=== PATIENT | male | born 1935 | race Caucasian/White ===

== ENCOUNTER 2020-01-29 16:58 | Inpatient (IN) | payer MEDICARE, BC ==
[~2020-01-29] VITALS: Ht 182.9 cm; Wt 87.7 kg
[2020-01-29 17:56] LABS: MEAN CORPUSCULAR HGB CONC 33.2 g/dL (33.2-36.2); MEAN CORPUSCULAR VOLUME 96.5 fL (81-97); MEAN PLATELET VOLUME 9.3 fL (7.4-10.4); PLATELET COUNT 138 x10^3/uL (130-400); RED BLOOD COUNT 4.14 x10^6/uL (4.38-5.82); RED CELL DISTRIBUTION WIDTH 13.6 % (9.4-14.8)
[2020-01-29 17:57] LABS: MD YES
[2020-01-29] MEDS ORDERED: SODIUM CHLORIDE FLUSH 10ML SYR IVF ONE (18:00)
[2020-01-29] MEDS ORDERED: SODIUM CHLORIDE 0.9% 1,000ML IVBOLUS ONE (18:00)
[2020-01-29 18:06] LABS: ALANINE AMINOTRANSFERASE 19 U/L (12-78); ALBUMIN 3.2 g/dL (3.4-5.0); ANION GAP 10 mmol/L (5-15); CALCIUM 8.7 mg/dL (8.5-10.1); CHLORIDE 107 mmol/L (98-107); CREATININE 1.37 mg/dL (0.7-1.3)
[2020-01-29 18:10] LABS: ALKALINE PHOSPHATASE 95 U/L (45-117); BILIRUBIN,TOTAL 1.8 mg/dL (0.2-1.0); TOTAL PROTEIN 6.1 g/dL (6.4-8.2)
--- NOTE | 2020-01-29 18:10 | NUR ---
REPORT RECEIVED FROM DOROTHEA AVILEZ.
--- NOTE | 2020-01-29 18:15 | NUR ---
BS REPORT TO EM, TRANSFER OF CARE AT THIS TIME.
[2020-01-29 18:20] LABS: BAND#(MANUAL) 0.57 x10^3/uL; BANDS%(MANUAL) 3 % (0-7); LYMPH#(MANUAL) 0.95 x10^3/uL (1-3.4); LYMPHS% (MANUAL) 5 % (22-44); MONOS#(MANUAL) 1.32 x10^3/uL (0.3-2.7); MONOS% (MANUAL) 7 % (2-9); SEG#(MANUAL) 16.07 x10^3/uL (1.8-6.8); SEGS% (MANUAL) 85 % (42-75)
[2020-01-29 18:21] LABS: <PLATELET ESTIMATE> ADEQUATE; <PLT MORPHOLOGY> NORMAL PLT MORPH; <RBC MORPHOLOGY> NORMAL
--- NOTE | 2020-01-29 18:39 | NUR ---
PT UNABLE TO PROVIDE URINE AT THIS TIME.
--- NOTE | 2020-01-29 19:03 | NUR ---
STRAIGHT CATH URINE SPECIMEN OBTAINED. OUTPUT 300CC. PT REPORTS HAS NOT MADE ANY URINE TODAY.
[2020-01-29] MEDS ORDERED: TACR0.5C4 PO (19:25)
[2020-01-29] MEDS ORDERED: FLEC50TA25 PO (19:25)
[2020-01-29] MEDS ORDERED: MYCO360T PO (19:25)
[2020-01-29] MEDS ORDERED: SIMV20TA19 PO (19:25)
[2020-01-29] MEDS ORDERED: LASIX PO (19:25)
[2020-01-29] MEDS ORDERED: ASPI-650 PO (19:25)
[2020-01-29] MEDS ORDERED: TACR1CAP4 PO (19:25)
[2020-01-29] MEDS ORDERED: SAW1CAPS8 PO (19:25)
[2020-01-29] MEDS ORDERED: PANT40TA5 PO (19:25)
[2020-01-29 19:32] LABS: CULTURE INDICATED? YES; MICROSCOPIC INDICATED
--- NOTE | 2020-01-29 19:33 | NUR ---
ALL TESTS RESULTED. PT IS UP FOR RECHECK AT THIS TIME.
--- NOTE | 2020-01-29 21:03 | NUR ---
PT RESTING ON [employer] W/ CALL LIGHT IN REACH. PER DR.SAHM LEE TO TAKE EVENING MEDS. PROVIDED WATER. AWAITING RECHECK.
--- NOTE | 2020-01-29 21:05 | NUR ---
MED REC DONE.
[2020-01-29] MEDS ORDERED: CEFTRIAXONE PMX 1GM/50ML 50 ML IVPB ONE (21:30)
[2020-01-29] MEDS ORDERED: SODIUM CHLORIDE FLUSH 10ML SYR IVF PRN (21:30)
--- NOTE | 2020-01-29 21:42 | NUR ---
ADMITTING PROVIDER IN ROOM.
[2020-01-29] MEDS ORDERED: hydrALAzine 20 MG/ML, 1ML IVPush PRN (22:00)
[2020-01-29] MEDS ORDERED: LABETALOL 5MG/ML, 20ML IVPush PRN (22:00)
[2020-01-29] MEDS ORDERED: BISACODYL 10 MG SUPP PR PRN (22:00)
[2020-01-29] MEDS: SIMVASTATIN 20 MG TABLET PO SCH (22:00)
[2020-01-29] MEDS ORDERED: ONDANSETRON ODT 4 MG PO PRN (22:00)
[2020-01-29] MEDS ORDERED: ACETAMINOPHEN 325 MG TABLET PO PRN (22:00)
[2020-01-29] MEDS: mycophenOLATE SODIUM 360MG DR PO SCH (22:00)
[2020-01-29] MEDS: FLECAINIDE 50MG TABLET PO SCH (22:00)
[2020-01-29] MEDS ORDERED: ONDANSETRON 2MG/ML, 2ML IVPush PRN (22:00)
[2020-01-29] MEDS ORDERED: DOCUSATE 100 MG CAPSULE PO PRN (22:00)
[2020-01-29] MEDS ORDERED: POLYETHYLENE GLYCOL 17 GM PACKET PO PRN (22:00)
[2020-01-29] MEDS: TACROLIMUS 1 MG CAPSULE PO SCH (22:00)
--- NOTE | 2020-01-29 22:10 | NUR ---
REPORT GIVEN TO DAIN AVILEZ. PT IS READY FOR TRANSPORT AT THIS TIME.
--- NOTE | 2020-01-29 22:17 | NUR ---
PT TRANSFERED TO FLOOR.
[2020-01-29 22:32] VITALS: BP 147/78
[2020-01-29] MEDS: CEFTRIAXONE PMX 1GM/50ML 50 ML IV SCH (23:43)
[2020-01-29] MEDS: HEPARIN 5,000 UNITS/ML, 1ML SQ SCH (23:43)
[2020-01-29] MEDS: SODIUM CHLORIDE 0.9% 1,000 ML IV SCH (23:43)
[2020-01-30 01:03] VITALS: BP 142/68
[2020-01-30 06:37] LABS: BASOPHILS # (AUTO) 0.01 x10^3/uL (0-0.1); BASOPHILS % (AUTO) 0 % (0-1); EOSINOPHILS % (AUTO) 0 % (1-7); LYMPHOCYTES # (AUTO) 0.69 x10^3/uL (1-3.4); LYMPHOCYTES % (AUTO) 4 % (22-44); MD NO; MEAN CORPUSCULAR HGB CONC 32.8 g/dL (33.2-36.2); MEAN CORPUSCULAR VOLUME 97.5 fL (81-97); MEAN PLATELET VOLUME 9.5 fL (7.4-10.4); MONOCYTES # (AUTO) 0.99 x10^3/uL (0.2-0.8); MONOCYTES % (AUTO) 6 % (2-9); NEUTROPHILS # (AUTO) 14.53 x10^3/uL (1.8-6.8); NEUTROPHILS % (AUTO) 90 % (42-75); PLATELET COUNT 114 x10^3/uL (130-400); RED BLOOD COUNT 4.09 x10^6/uL (4.38-5.82); RED CELL DISTRIBUTION WIDTH 13.1 % (9.4-14.8)
[2020-01-30 06:38] VITALS: BP 133/72
[2020-01-30 06:44] LABS: ALBUMIN 2.9 g/dL (3.4-5.0); ANION GAP 7 mmol/L (5-15); CALCIUM 8.3 mg/dL (8.5-10.1); CHLORIDE 109 mmol/L (98-107)
[2020-01-30 06:47] LABS: ALANINE AMINOTRANSFERASE 22 U/L (12-78); ALKALINE PHOSPHATASE 99 U/L (45-117); BILIRUBIN,TOTAL 1.7 mg/dL (0.2-1.0)
[2020-01-30] MEDS: TACROLIMUS 0.5 MG CAPSULE PO SCH (07:36)
[2020-01-30] MEDS: HEPARIN 5,000 UNITS/ML, 1ML SQ SCH (08:07)
[2020-01-30] MEDS: FLECAINIDE 50MG TABLET PO SCH (08:08)
[2020-01-30] MEDS: PANTOPRAZOLE 40MG TABLET PO SCH (08:08)
[2020-01-30] MEDS: mycophenOLATE SODIUM 360MG DR PO SCH ×2 (08:08→20:43)
[2020-01-30] MEDS: SODIUM CHLORIDE 0.9% 1,000 ML IV SCH (09:28)
[2020-01-30] MEDS: TAMSULOSIN 0.4 MG CAP.ER.24H PO SCH (09:28)
[2020-01-30] MEDS: PHENAZOPYRIDINE 100 MG TABLET PO SCH ×3 (09:28→20:43)
[2020-01-30] MEDS ORDERED: SODIUM PHOSPHATE 30 MMOL in SODIUM CHLORIDE 0.9% 500 ML IV ONE (11:00)
[2020-01-30] MEDS ORDERED: MAGNESIUM SULFATE PMX 2GM/50ML 50 ML IV ONE (11:00)
[2020-01-30] MEDS ORDERED: DILTIAZEM 5 MG/ML, 5ML ONE (12:27)
[2020-01-30] MEDS: DILTIAZEM 5 MG/ML, 5ML IVPush PRN (12:30)
[2020-01-30] MEDS: DILTIAZEM 125 MG in SODIUM CHLORIDE 0.9% 100 ML IV SCH ×2 (13:00→23:59)
[2020-01-30 13:16] VITALS: BP 104/64
[2020-01-30] MEDS ORDERED: HEPARIN 5,000 UNITS/ML, 1ML IV ONE (16:30)
[2020-01-30] MEDS: HEPARIN 25,000 UNITS/250ML PMX 250 ML IV PRN (17:34)
[2020-01-30 18:55] VITALS: BP 112/62
[2020-01-30] MEDS: TACROLIMUS 1 MG CAPSULE PO SCH (20:43)
[2020-01-30] MEDS: SIMVASTATIN 20 MG TABLET PO SCH (20:44)
[2020-01-30] MEDS: CEFTRIAXONE PMX 1GM/50ML 50 ML IV SCH (22:26)
[2020-01-31] MEDS: HEPARIN 5,000 UNITS/ML, 1ML IV PRN ×3 (00:06→22:10)
[2020-01-31 01:04] VITALS: BP 100/60
[2020-01-31] MEDS: SODIUM CHLORIDE 0.9% 1,000 ML IV SCH ×3 (01:41→15:56)
[2020-01-31 07:15] LABS: CALCIUM 7.8 mg/dL (8.5-10.1); CREATININE 1.12 mg/dL (0.7-1.3)
[2020-01-31 07:22] LABS: ANION GAP 9 mmol/L (5-15); CHLORIDE 110 mmol/L (98-107)
[2020-01-31 07:26] LABS: BASOPHILS # (AUTO) 0.01 x10^3/uL (0-0.1); BASOPHILS % (AUTO) 0 % (0-1); EOSINOPHILS # (AUTO) 0.01 x10^3/uL (0-0.4); EOSINOPHILS % (AUTO) 0 % (1-7); HEMOGRAM NOTE RECHECKED; LYMPHOCYTES # (AUTO) 0.56 x10^3/uL (1-3.4); LYMPHOCYTES % (AUTO) 7 % (22-44); MD NO; MEAN CORPUSCULAR HEMOGLOBIN 31.9 pg (27.5-34.5); MEAN CORPUSCULAR HGB CONC 32.8 g/dL (33.2-36.2); MEAN PLATELET VOLUME 9.7 fL (7.4-10.4); MONOCYTES # (AUTO) 0.33 x10^3/uL (0.2-0.8); MONOCYTES % (AUTO) 4 % (2-9); NEUTROPHILS # (AUTO) 7.55 x10^3/uL (1.8-6.8); NEUTROPHILS % (AUTO) 89 % (42-75); PLATELET COUNT 100 x10^3/uL (130-400); RED CELL DISTRIBUTION WIDTH 13.5 % (9.4-14.8)
[2020-01-31 07:45] VITALS: BP 111/58
[2020-01-31] MEDS: PHENAZOPYRIDINE 100 MG TABLET PO SCH ×3 (08:03→20:55)
[2020-01-31] MEDS: PANTOPRAZOLE 40MG TABLET PO SCH (08:03)
[2020-01-31] MEDS: TAMSULOSIN 0.4 MG CAP.ER.24H PO SCH (08:03)
[2020-01-31] MEDS: mycophenOLATE SODIUM 360MG DR PO SCH ×2 (08:03→20:56)
[2020-01-31] MEDS: TACROLIMUS 0.5 MG CAPSULE PO SCH (08:04)
[2020-01-31] MEDS ORDERED: POTASSIUM CHLORIDE 20 MEQ in SODIUM CHLORIDE 0.9% 250 ML IV ONE (11:00)
[2020-01-31 12:14] VITALS: BP 122/63
[2020-01-31] MEDS: FLECAINIDE 50MG TABLET PO SCH (12:48)
[2020-01-31] MEDS ORDERED: POTASSIUM PHOSPHATE 44 MEQ in SODIUM CHLORIDE 0.9% 500 ML IV ONE (15:00)
[2020-01-31] MEDS: HEPARIN 25,000 UNITS/250ML PMX 250 ML IV PRN (15:55)
[2020-01-31] MEDS: NAPHAZOLINE/PHENIRAMINE OPHTH EACHEYE PRN ×2 (17:13→20:58)
[2020-01-31 19:17] VITALS: BP 104/66
[2020-01-31] MEDS: TACROLIMUS 1 MG CAPSULE PO SCH (20:55)
[2020-01-31] MEDS: SIMVASTATIN 20 MG TABLET PO SCH (20:56)
[2020-01-31] MEDS: CEFTRIAXONE PMX 1GM/50ML 50 ML IV SCH (20:59)
[2020-02-01 00:35] VITALS: BP 155/74
[2020-02-01] MEDS: SODIUM CHLORIDE 0.9% 1,000 ML IV SCH ×2 (00:50→08:32)
[2020-02-01] MEDS: FLECAINIDE 50MG TABLET PO SCH ×2 (00:55→11:46)
[2020-02-01] MEDS ORDERED: ALBUTEROL SULFATE 2.5 MG/3 ML ONE (03:13)
[2020-02-01 04:57] LABS: MEAN CORPUSCULAR HEMOGLOBIN 32.5 pg (27.5-34.5); MEAN CORPUSCULAR HGB CONC 33.4 g/dL (33.2-36.2); MEAN CORPUSCULAR VOLUME 97.5 fL (81-97); MEAN PLATELET VOLUME 9.7 fL (7.4-10.4); PLATELET COUNT 97 x10^3/uL (130-400); RED BLOOD COUNT 3.75 x10^6/uL (4.38-5.82); RED CELL DISTRIBUTION WIDTH 13.5 % (9.4-14.8)
[2020-02-01 04:59] LABS: ALBUMIN 2.4 g/dL (3.4-5.0); ANION GAP 10 mmol/L (5-15); CALCIUM 7.8 mg/dL (8.5-10.1); CHLORIDE 109 mmol/L (98-107); CREATININE 0.97 mg/dL (0.7-1.3)
[2020-02-01] MEDS ORDERED: ALBUTEROL SULFATE 2.5 MG/3 ML NPPB PRN (05:30)
[2020-02-01 05:49] LABS: BASOPHILS % (AUTO) 0 % (0-1); EOSINOPHILS # (AUTO) 0.04 x10^3/uL (0-0.4); EOSINOPHILS % (AUTO) 1 % (1-7); LYMPHOCYTES # (AUTO) 0.65 x10^3/uL (1-3.4); LYMPHOCYTES % (AUTO) 10 % (22-44); MD SCAN; MONOCYTES # (AUTO) 0.52 x10^3/uL (0.2-0.8); MONOCYTES % (AUTO) 8 % (2-9); NEUTROPHILS # (AUTO) 5.38 x10^3/uL (1.8-6.8); NEUTROPHILS % (AUTO) 82 % (42-75)
[2020-02-01 07:55] VITALS: BP 140/85
[2020-02-01] MEDS: mycophenOLATE SODIUM 360MG DR PO SCH ×2 (08:25→20:59)
[2020-02-01] MEDS: TACROLIMUS 0.5 MG CAPSULE PO SCH (08:25)
[2020-02-01] MEDS: PHENAZOPYRIDINE 100 MG TABLET PO SCH ×3 (08:25→21:00)
[2020-02-01] MEDS: TAMSULOSIN 0.4 MG CAP.ER.24H PO SCH (08:25)
[2020-02-01] MEDS: PANTOPRAZOLE 40MG TABLET PO SCH (08:25)
[2020-02-01] MEDS ORDERED: POTASSIUM CHLORIDE 20 MEQ in SODIUM CHLORIDE 0.9% 250 ML IV ONE (09:00)
[2020-02-01] MEDS ORDERED: POTASSIUM PHOSPHATE 44 MEQ in SODIUM CHLORIDE 0.9% 500 ML IV ONE (09:00)
[2020-02-01] MEDS ORDERED: MAGNESIUM SULFATE PMX 2GM/50ML 50 ML IV ONE (09:00)
[2020-02-01] MEDS: MULTIVITS,STRESS FORMULA 1 TABLET PO SCH (10:14)
[2020-02-01] MEDS: CHOLECALCIFEROL 400 UNITS TABLET PO SCH (10:14)
[2020-02-01 13:13] VITALS: BP 146/85
[2020-02-01] MEDS: NAPHAZOLINE/PHENIRAMINE OPHTH EACHEYE PRN (16:52)
[2020-02-01] MEDS: ASCORBIC ACID 500 MG TABLET PO SCH (16:52)
[2020-02-01 19:49] VITALS: BP 143/85
[2020-02-01] MEDS: APIXABAN 5 MG TABLET PO SCH (20:59)
[2020-02-01] MEDS: TACROLIMUS 1 MG CAPSULE PO SCH (20:59)
[2020-02-01] MEDS: SIMVASTATIN 20 MG TABLET PO SCH (20:59)
[2020-02-01] MEDS: CEFTRIAXONE PMX 1GM/50ML 50 ML IV SCH (21:00)
[2020-02-02] MEDS: FLECAINIDE 50MG TABLET PO SCH (00:51)
[2020-02-02] MEDS: NAPHAZOLINE/PHENIRAMINE OPHTH EACHEYE PRN ×2 (00:52→13:18)
[2020-02-02 00:53] VITALS: BP 152/90
[2020-02-02] MEDS: DILTIAZEM 5 MG/ML, 5ML IVPush PRN ×3 (01:57→08:05)
[2020-02-02 04:54] LABS: BASOPHILS # (AUTO) 0.02 x10^3/uL (0-0.1); BASOPHILS % (AUTO) 0 % (0-1); EOSINOPHILS # (AUTO) 0.04 x10^3/uL (0-0.4); EOSINOPHILS % (AUTO) 1 % (1-7); LYMPHOCYTES # (AUTO) 0.69 x10^3/uL (1-3.4); LYMPHOCYTES % (AUTO) 9 % (22-44); MD NO; MEAN CORPUSCULAR HEMOGLOBIN 31.6 pg (27.5-34.5); MEAN CORPUSCULAR HGB CONC 32.4 g/dL (33.2-36.2); MEAN CORPUSCULAR VOLUME 97.7 fL (81-97); MEAN PLATELET VOLUME 9.2 fL (7.4-10.4); MONOCYTES # (AUTO) 0.69 x10^3/uL (0.2-0.8); MONOCYTES % (AUTO) 9 % (2-9); NEUTROPHILS # (AUTO) 6.25 x10^3/uL (1.8-6.8); NEUTROPHILS % (AUTO) 81 % (42-75); PLATELET COUNT 111 x10^3/uL (130-400); RED BLOOD COUNT 3.81 x10^6/uL (4.38-5.82); RED CELL DISTRIBUTION WIDTH 13.3 % (9.4-14.8)
[2020-02-02 05:04] LABS: ALBUMIN 2.3 g/dL (3.4-5.0); ANION GAP 8 mmol/L (5-15); CALCIUM 7.9 mg/dL (8.5-10.1); CHLORIDE 110 mmol/L (98-107)
[2020-02-02 07:02] VITALS: BP 129/81
[2020-02-02] MEDS ORDERED: POTASSIUM PHOSPHATE 44 MEQ in SODIUM CHLORIDE 0.9% 500 ML IV ONE (08:00)
[2020-02-02] MEDS ORDERED: MAGNESIUM SULFATE PMX 2GM/50ML 50 ML IV ONE (08:00)
[2020-02-02] MEDS: CHOLECALCIFEROL 400 UNITS TABLET PO SCH (08:04)
[2020-02-02] MEDS: TAMSULOSIN 0.4 MG CAP.ER.24H PO SCH (08:04)
[2020-02-02] MEDS: PANTOPRAZOLE 40MG TABLET PO SCH (08:05)
[2020-02-02] MEDS: MULTIVITS,STRESS FORMULA 1 TABLET PO SCH (08:05)
[2020-02-02] MEDS: APIXABAN 5 MG TABLET PO SCH ×2 (08:05→21:33)
[2020-02-02] MEDS: ASCORBIC ACID 500 MG TABLET PO SCH ×2 (08:05→16:13)
[2020-02-02] MEDS: TACROLIMUS 0.5 MG CAPSULE PO SCH (08:05)
[2020-02-02] MEDS: PHENAZOPYRIDINE 100 MG TABLET PO SCH ×3 (08:05→21:33)
[2020-02-02] MEDS: DILTIAZEM 60 MG TABLET PO SCH ×3 (09:39→21:33)
[2020-02-02] MEDS: mycophenOLATE SODIUM 360MG DR PO SCH ×2 (09:40→21:33)
[2020-02-02 13:14] VITALS: BP 104/67
[2020-02-02 18:39] VITALS: BP 116/65
[2020-02-02] MEDS: CEFTRIAXONE PMX 1GM/50ML 50 ML IV SCH (21:33)
[2020-02-02] MEDS: TACROLIMUS 1 MG CAPSULE PO SCH (21:33)
[2020-02-02] MEDS: SIMVASTATIN 20 MG TABLET PO SCH (21:33)
[2020-02-03 00:52] VITALS: BP 111/62
[2020-02-03 06:05] LABS: BASOPHILS % (AUTO) 0 % (0-1); EOSINOPHILS # (AUTO) 0.09 x10^3/uL (0-0.4); EOSINOPHILS % (AUTO) 1 % (1-7); LYMPHOCYTES # (AUTO) 0.85 x10^3/uL (1-3.4); LYMPHOCYTES % (AUTO) 13 % (22-44); MD NO; MEAN CORPUSCULAR HEMOGLOBIN 31.7 pg (27.5-34.5); MEAN CORPUSCULAR HGB CONC 32.7 g/dL (33.2-36.2); MEAN CORPUSCULAR VOLUME 96.8 fL (81-97); MONOCYTES # (AUTO) 0.57 x10^3/uL (0.2-0.8); MONOCYTES % (AUTO) 9 % (2-9); NEUTROPHILS # (AUTO) 5.07 x10^3/uL (1.8-6.8); NEUTROPHILS % (AUTO) 77 % (42-75); PLATELET COUNT 114 x10^3/uL (130-400); RED BLOOD COUNT 3.88 x10^6/uL (4.38-5.82); RED CELL DISTRIBUTION WIDTH 13.4 % (9.4-14.8)
[2020-02-03 06:08] VITALS: BP 150/64
[2020-02-03 06:15] LABS: ALBUMIN 2.2 g/dL (3.4-5.0); CHLORIDE 110 mmol/L (98-107)
[2020-02-03 06:17] LABS: ANION GAP 8 mmol/L (5-15); CALCIUM 8.1 mg/dL (8.5-10.1); CREATININE 0.75 mg/dL (0.7-1.3)
[2020-02-03] MEDS: TACROLIMUS 0.5 MG CAPSULE PO SCH (07:34)
[2020-02-03] MEDS: DILTIAZEM 60 MG TABLET PO SCH (07:34)
[2020-02-03] MEDS: PHENAZOPYRIDINE 100 MG TABLET PO SCH ×3 (07:34→20:09)
[2020-02-03] MEDS: TAMSULOSIN 0.4 MG CAP.ER.24H PO SCH (07:34)
[2020-02-03] MEDS: PANTOPRAZOLE 40MG TABLET PO SCH (07:34)
[2020-02-03] MEDS: MULTIVITS,STRESS FORMULA 1 TABLET PO SCH (07:34)
[2020-02-03] MEDS: CHOLECALCIFEROL 400 UNITS TABLET PO SCH (07:34)
[2020-02-03] MEDS: APIXABAN 5 MG TABLET PO SCH ×2 (07:34→20:10)
[2020-02-03] MEDS: ASCORBIC ACID 500 MG TABLET PO SCH ×2 (07:34→15:35)
[2020-02-03] MEDS: DILTIAZEM 120 MG CAP.ER.12H PO SCH ×2 (10:01→20:12)
[2020-02-03] MEDS ORDERED: SIMV10TA18 PO (10:04)
[2020-02-03] MEDS ORDERED: APIX5TAB PO (10:04)
[2020-02-03] MEDS ORDERED: DILT120C11 PO (10:04)
[2020-02-03] MEDS ORDERED: GENT5DRO30 LEFTEYE (10:32)
[2020-02-03] MEDS: mycophenOLATE SODIUM 360MG DR PO SCH ×2 (11:11→20:09)
[2020-02-03] MEDS: GENTAMICIN OPHTH SOLN 0.3%,5ML LEFTEYE SCH ×4 (11:12→23:17)
[2020-02-03 12:00] VITALS: BP 108/75
[2020-02-03 19:02] VITALS: BP 101/72
[2020-02-03] MEDS: TACROLIMUS 1 MG CAPSULE PO SCH (20:09)
[2020-02-03] MEDS: SIMVASTATIN 20 MG TABLET PO SCH (20:10)
[2020-02-03 20:12] VITALS: BP 121/69
[2020-02-04 00:51] VITALS: BP 107/78
[2020-02-04] MEDS: GENTAMICIN OPHTH SOLN 0.3%,5ML LEFTEYE SCH ×3 (03:04→12:36)
[2020-02-04 06:43] VITALS: BP 143/75
[2020-02-04] MEDS: mycophenOLATE SODIUM 360MG DR PO SCH (08:14)
[2020-02-04] MEDS: PHENAZOPYRIDINE 100 MG TABLET PO SCH (08:14)
[2020-02-04] MEDS: APIXABAN 5 MG TABLET PO SCH (08:14)
[2020-02-04] MEDS: MULTIVITS,STRESS FORMULA 1 TABLET PO SCH (08:14)
[2020-02-04] MEDS: TACROLIMUS 0.5 MG CAPSULE PO SCH (08:14)
[2020-02-04] MEDS: ASCORBIC ACID 500 MG TABLET PO SCH (08:14)
[2020-02-04] MEDS: PANTOPRAZOLE 40MG TABLET PO SCH (08:14)
[2020-02-04] MEDS: DILTIAZEM 120 MG CAP.ER.12H PO SCH (08:14)
[2020-02-04] MEDS: CHOLECALCIFEROL 400 UNITS TABLET PO SCH (08:14)
[2020-02-04] MEDS: TAMSULOSIN 0.4 MG CAP.ER.24H PO SCH (08:14)
[2020-02-04 10:05] VITALS: BP 111/65
[2020-02-04 12:08] VITALS: BP 132/71
== END 2020-02-04 14:23 | disposition home health service (06) | DRG 871 ==
LOC: ED 20:07 → EDIP 21:36 → 4EST 22:41
PROVIDERS: ADMIT Family Medicine; ATTEND Family Medicine
DX: A41.9 Sepsis, unspecified organism (principal); N17.0 Acute kidney failure with tubular necrosis; E87.2 Acidosis; T86.19 Other complication of kidney transplant; B96.89 Other specified bacterial agents as the cause of diseases classified elsewhere; D69.6 Thrombocytopenia, unspecified; R33.9 Retention of urine, unspecified; R27.0 Ataxia, unspecified; I35.8 Other nonrheumatic aortic valve disorders; I48.0 Paroxysmal atrial fibrillation; N30.91 Cystitis, unspecified with hematuria; N40.1 Benign prostatic hyperplasia with lower urinary tract symptoms; Z87.441 Personal history of nephrotic syndrome; Z80.52 Family history of malignant neoplasm of bladder; Z88.8 Allergy status to other drugs, medicaments and biological substances; Y83.0 Surgical operation with transplant of whole organ as the cause of abnormal reaction of the patient, or of later complication, without mention of misadventure at the time of the procedure; W18.2XXA Fall in (into) shower or empty bathtub, initial encounter; Y93.E1 Activity, personal bathing and showering; Y92.009 Unspecified place in unspecified non-institutional (private) residence as the place of occurrence of the external cause
CPT/HCPCS: 36415; 70450; 71045; 76770; 80048; 80053; 80069; 80197; 81001; 83036; 83605; 83735; 83880; 84100; 84443; 85025; 85520; 87040; 87077; 87086; 87186; 93005; 93306; 93880; 94640; G0378; J0696; J1644; J3480; J7507; J7518; J3475; J7030; J7040; J7050

== ENCOUNTER 2020-02-15 14:24 | Inpatient (IN) | payer MEDICARE, OTHER ==
[~2020-02-15] VITALS: Ht 182.9 cm; Wt 80.2 kg
[~2020-02-15 14:24] MED LIST: APIX5TAB PO; ASPI-650 PO; DILT120C11 PO; FLEC50TA25 PO; GENT5DRO30 LEFTEYE; LASIX PO; MYCO360T PO; PANT40TA5 PO; SAW1CAPS8 PO; SIMV10TA18 PO; SIMV20TA19 PO; TACR0.5C4 PO; TACR1CAP4 PO
--- NOTE | 2020-02-15 14:50 | NUR ---
PT C/O NOT BEING ABLE TO URINATE FOR LAST FEW DAYS. PT STATES ONLY A LITTLE COMES OUT AT A TIME. 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 DAUGHTER AT BEDSIDE. PT CONNECTED TO MONITORING. CALL LIGHT IN REACH.
--- NOTE | 2020-02-15 15:09 | NUR ---
BLADDER SCAN SHOWED ABOUT 200ML. MD NOTIFIED.
--- NOTE | 2020-02-15 15:11 | NUR ---
PT GIVEN URINAL TO SEE HOW MUCH PT CAN URINATE.
[2020-02-15 15:44] LABS: BASOPHILS # (AUTO) 0.01 x10^3/uL (0-0.1); BASOPHILS % (AUTO) 0 % (0-1); EOSINOPHILS # (AUTO) 0.01 x10^3/uL (0-0.4); EOSINOPHILS % (AUTO) 0 % (1-7); LYMPHOCYTES % (AUTO) 12 % (22-44); MD NO; MEAN CORPUSCULAR HEMOGLOBIN 31.5 pg (27.5-34.5); MEAN CORPUSCULAR HGB CONC 32.5 g/dL (33.2-36.2); MONOCYTES # (AUTO) 0.95 x10^3/uL (0.2-0.8); MONOCYTES % (AUTO) 12 % (2-9); NEUTROPHILS # (AUTO) 6.35 x10^3/uL (1.8-6.8); NEUTROPHILS % (AUTO) 76 % (42-75); PLATELET COUNT 216 x10^3/uL (130-400); RED BLOOD COUNT 3.94 x10^6/uL (4.38-5.82); RED CELL DISTRIBUTION WIDTH 13.8 % (9.4-14.8)
[2020-02-15 15:51] LABS: ALBUMIN 2.9 g/dL (3.4-5.0); ANION GAP 7 mmol/L (5-15); CALCIUM 8.6 mg/dL (8.5-10.1); CHLORIDE 106 mmol/L (98-107); CREATININE 1.24 mg/dL (0.7-1.3)
--- NOTE | 2020-02-15 16:04 | NUR ---
PT UNABLE TO PROVIDE URINE SAMPLE. RECEIVED VERBAL ORDER FROM TO PLACE INDWELLING LI CATHETER. CATHETER PLACE USING STERILE PROCEDURE. 200ML OF YELLOW URINE DRAINED. UA COLLECTED AND TAKEN TO LAB.
[2020-02-15 16:17] LABS: MICROSCOPIC AUTO
[2020-02-15 16:20] LABS: CULTURE INDICATED? YES
--- NOTE | 2020-02-15 16:24 | NUR ---
ALL RESULTS ARE BACK AT THIS TIME. CHART UP FOR RECHECK.
--- NOTE | 2020-02-15 17:36 | NUR ---
REPORT GIVEN TO STACIE AVILEZ.
[2020-02-15] MEDS ORDERED: ERTAPENEM 1 GM in SODIUM CHLORIDE 0.9% 50 ML IV SCH (18:00)
[2020-02-15] MEDS ORDERED: ACETAMINOPHEN 325 MG TABLET PO PRN (19:00)
[2020-02-15] MEDS ORDERED: BISACODYL 10 MG SUPP PR PRN (19:00)
[2020-02-15] MEDS ORDERED: TACROLIMUS 0.5 MG CAPSULE PO SCH (19:00)
[2020-02-15] MEDS ORDERED: POLYETHYLENE GLYCOL 17 GM PACKET PO PRN (19:00)
[2020-02-15] MEDS ORDERED: ONDANSETRON ODT 4 MG PO PRN (19:00)
[2020-02-15 19:45] VITALS: BP 131/75
[2020-02-15] MEDS: GENTAMICIN OPHTH SOLN 0.3%,5ML LEFTEYE SCH ×3 (21:01→23:27)
[2020-02-15] MEDS: CIPROFLOXACIN/PMX 400MG/200ML 200 ML IV SCH (21:02)
[2020-02-15] MEDS: TACROLIMUS 1 MG CAPSULE PO SCH (21:02)
[2020-02-15] MEDS: APIXABAN 5 MG TABLET PO SCH (21:03)
[2020-02-15] MEDS: SIMVASTATIN 10 MG TABLET PO SCH (21:03)
[2020-02-15] MEDS: mycophenOLATE SODIUM 360MG DR PO SCH (22:00)
[2020-02-16 01:42] VITALS: BP 131/74
[2020-02-16] MEDS: GENTAMICIN OPHTH SOLN 0.3%,5ML LEFTEYE SCH ×5 (05:14→20:48)
[2020-02-16 05:22] LABS: ANION GAP 6 mmol/L (5-15); CALCIUM 8.8 mg/dL (8.5-10.1); CHLORIDE 109 mmol/L (98-107); CREATININE 1.04 mg/dL (0.7-1.3)
[2020-02-16 05:31] LABS: BASOPHILS # (AUTO) 0.02 x10^3/uL (0-0.1); BASOPHILS % (AUTO) 0 % (0-1); EOSINOPHILS # (AUTO) 0.07 x10^3/uL (0-0.4); EOSINOPHILS % (AUTO) 1 % (1-7); LYMPHOCYTES # (AUTO) 0.97 x10^3/uL (1-3.4); LYMPHOCYTES % (AUTO) 16 % (22-44); MD NO; MEAN CORPUSCULAR HEMOGLOBIN 31.5 pg (27.5-34.5); MEAN CORPUSCULAR HGB CONC 32.5 g/dL (33.2-36.2); MEAN CORPUSCULAR VOLUME 97.1 fL (81-97); MEAN PLATELET VOLUME 9.3 fL (7.4-10.4); MONOCYTES # (AUTO) 0.75 x10^3/uL (0.2-0.8); MONOCYTES % (AUTO) 13 % (2-9); NEUTROPHILS # (AUTO) 4.16 x10^3/uL (1.8-6.8); NEUTROPHILS % (AUTO) 70 % (42-75); PLATELET COUNT 194 x10^3/uL (130-400); RED BLOOD COUNT 3.96 x10^6/uL (4.38-5.82); RED CELL DISTRIBUTION WIDTH 13.7 % (9.4-14.8)
[2020-02-16 07:38] VITALS: BP 116/71
[2020-02-16] MEDS: APIXABAN 5 MG TABLET PO SCH ×2 (07:54→20:48)
[2020-02-16] MEDS: PANTOPRAZOLE 40MG TABLET PO SCH (07:54)
[2020-02-16] MEDS: TACROLIMUS 0.5 MG CAPSULE PO SCH (07:54)
[2020-02-16] MEDS: SENNA/DOCUSATE TABLET PO SCH (07:54)
[2020-02-16] MEDS: mycophenOLATE SODIUM 360MG DR PO SCH ×2 (09:03→20:48)
[2020-02-16] MEDS: CIPROFLOXACIN/PMX 400MG/200ML 200 ML IV SCH (09:04)
[2020-02-16] MEDS ORDERED: ERTAPENEM 1 GM in SODIUM CHLORIDE 0.9% 50 ML IV SCH (12:30)
[2020-02-16 13:24] VITALS: BP 123/68
[2020-02-16 19:25] VITALS: BP 144/76
[2020-02-16] MEDS: TACROLIMUS 1 MG CAPSULE PO SCH (20:48)
[2020-02-16] MEDS: SIMVASTATIN 10 MG TABLET PO SCH (20:48)
[2020-02-17 01:10] VITALS: BP 117/74
[2020-02-17] MEDS: GENTAMICIN OPHTH SOLN 0.3%,5ML LEFTEYE SCH ×6 (01:15→20:41)
[2020-02-17 05:46] LABS: BASOPHILS # (AUTO) 0.02 x10^3/uL (0-0.1); BASOPHILS % (AUTO) 1 % (0-1); EOSINOPHILS # (AUTO) 0.03 x10^3/uL (0-0.4); EOSINOPHILS % (AUTO) 1 % (1-7); LYMPHOCYTES # (AUTO) 1.04 x10^3/uL (1-3.4); LYMPHOCYTES % (AUTO) 23 % (22-44); MD NO; MEAN CORPUSCULAR HEMOGLOBIN 31.8 pg (27.5-34.5); MEAN CORPUSCULAR HGB CONC 32.6 g/dL (33.2-36.2); MEAN CORPUSCULAR VOLUME 97.6 fL (81-97); MONOCYTES # (AUTO) 0.54 x10^3/uL (0.2-0.8); MONOCYTES % (AUTO) 12 % (2-9); NEUTROPHILS # (AUTO) 2.91 x10^3/uL (1.8-6.8); NEUTROPHILS % (AUTO) 64 % (42-75); PLATELET COUNT 201 x10^3/uL (130-400); RED BLOOD COUNT 4.08 x10^6/uL (4.38-5.82); RED CELL DISTRIBUTION WIDTH 13.5 % (9.4-14.8)
[2020-02-17 05:56] LABS: CHLORIDE 107 mmol/L (98-107)
[2020-02-17 06:10] LABS: % IRON SATURATION 12 % (20-55); ALBUMIN 2.7 g/dL (3.4-5.0); ANION GAP 9 mmol/L (5-15); CALCIUM 8.8 mg/dL (8.5-10.1); CREATININE 1.06 mg/dL (0.7-1.3); IRON LEVEL 31 mcg/dL (65-175); TOTAL IRON BINDING CAPACITY 262 mcg/dL (250-450)
[2020-02-17 07:30] VITALS: BP 127/76
[2020-02-17] MEDS: mycophenOLATE SODIUM 360MG DR PO SCH ×2 (08:50→20:41)
[2020-02-17] MEDS: SENNA/DOCUSATE TABLET PO SCH (08:50)
[2020-02-17] MEDS: PANTOPRAZOLE 40MG TABLET PO SCH (08:50)
[2020-02-17] MEDS: APIXABAN 5 MG TABLET PO SCH ×2 (08:50→20:41)
[2020-02-17] MEDS: TACROLIMUS 0.5 MG CAPSULE PO SCH (08:50)
[2020-02-17] MEDS: CEFTRIAXONE PMX 2GM/50ML 50 ML IV SCH (13:07)
[2020-02-17] MEDS: NAPHAZOLINE/PHENIRAMINE OPHTH EACHEYE PRN ×2 (13:59→20:03)
[2020-02-17] MEDS: TAMSULOSIN 0.4 MG CAP.ER.24H PO SCH (13:59)
[2020-02-17 14:48] VITALS: BP 125/63
[2020-02-17 19:20] VITALS: BP 151/73
[2020-02-17] MEDS: SIMVASTATIN 10 MG TABLET PO SCH (20:41)
[2020-02-17] MEDS: TACROLIMUS 1 MG CAPSULE PO SCH (20:41)
[2020-02-18 01:53] VITALS: BP 106/70
[2020-02-18] MEDS: GENTAMICIN OPHTH SOLN 0.3%,5ML LEFTEYE SCH ×4 (01:53→12:11)
[2020-02-18 04:51] LABS: BASOPHILS # (AUTO) 0.02 x10^3/uL (0-0.1); BASOPHILS % (AUTO) 1 % (0-1); EOSINOPHILS # (AUTO) 0.06 x10^3/uL (0-0.4); EOSINOPHILS % (AUTO) 1 % (1-7); LYMPHOCYTES # (AUTO) 1.19 x10^3/uL (1-3.4); LYMPHOCYTES % (AUTO) 28 % (22-44); MD NO; MEAN CORPUSCULAR HEMOGLOBIN 31.9 pg (27.5-34.5); MEAN CORPUSCULAR HGB CONC 32.7 g/dL (33.2-36.2); MEAN CORPUSCULAR VOLUME 97.4 fL (81-97); MEAN PLATELET VOLUME 9.2 fL (7.4-10.4); MONOCYTES # (AUTO) 0.47 x10^3/uL (0.2-0.8); MONOCYTES % (AUTO) 11 % (2-9); NEUTROPHILS # (AUTO) 2.55 x10^3/uL (1.8-6.8); NEUTROPHILS % (AUTO) 60 % (42-75); PLATELET COUNT 181 x10^3/uL (130-400); RED BLOOD COUNT 4.08 x10^6/uL (4.38-5.82); RED CELL DISTRIBUTION WIDTH 13.7 % (9.4-14.8)
[2020-02-18 04:56] LABS: CHLORIDE 107 mmol/L (98-107)
[2020-02-18 05:08] LABS: ALANINE AMINOTRANSFERASE 27 U/L (12-78); ALBUMIN 2.8 g/dL (3.4-5.0); ALKALINE PHOSPHATASE 89 U/L (45-117); ANION GAP 6 mmol/L (5-15); BILIRUBIN,TOTAL 0.5 mg/dL (0.2-1.0); CALCIUM 8.8 mg/dL (8.5-10.1); CREATININE 1.05 mg/dL (0.7-1.3); TOTAL PROTEIN 6.2 g/dL (6.4-8.2)
[2020-02-18 07:30] VITALS: BP 122/77
[2020-02-18] MEDS: TAMSULOSIN 0.4 MG CAP.ER.24H PO SCH (07:44)
[2020-02-18] MEDS: APIXABAN 5 MG TABLET PO SCH (07:44)
[2020-02-18] MEDS: NAPHAZOLINE/PHENIRAMINE OPHTH EACHEYE PRN (07:44)
[2020-02-18] MEDS: PANTOPRAZOLE 40MG TABLET PO SCH (07:45)
[2020-02-18] MEDS: mycophenOLATE SODIUM 360MG DR PO SCH (07:45)
[2020-02-18] MEDS: TACROLIMUS 0.5 MG CAPSULE PO SCH (07:45)
[2020-02-18] MEDS: SENNA/DOCUSATE TABLET PO SCH (08:21)
[2020-02-18 11:34] VITALS: BP_SYST 119; BP_SYST 121; BP_SYST 122; BP_DIAS 72; BP_DIAS 76
[2020-02-18] MEDS: CEFTRIAXONE PMX 2GM/50ML 50 ML IV SCH (12:11)
[2020-02-18 14:32] VITALS: BP 119/60
--- NOTE | 2020-02-18 14:49 | NUR ---
Patient may benefit from home health PT/OT services upon discharge for home safety assessment Addendum: 02/18/20 at 1458 by Evin Meade OT Amended: Links added.
[2020-02-18] MEDS ORDERED: TAMS-11 PO (14:52)
[2020-02-18] MEDS ORDERED: GENT5DRO30 LEFTEYE (14:52)
[2020-02-18] MEDS ORDERED: NAPHAZOLINE EACHEYE (14:53)
[2020-02-18] MEDS ORDERED: PHENIRAMINE EACHEYE (14:53)
== END 2020-02-18 16:11 | disposition home or self-care (01) | DRG 690 ==
LOC: ED 15:18 → EDIP 16:55 → 3N 17:52
PROVIDERS: ADMIT Hospitalist; ATTEND Internal Medicine
PROC: 02HV33Z Insertion of Infusion Device into Superior Vena Cava, Percutaneous Approach (ICD-10-PCS; principal; 2020-02-18)
PROC: B5181ZA Fluoroscopy of Superior Vena Cava using Low Osmolar Contrast, Guidance (ICD-10-PCS; 2020-02-18)
PROC: B548ZZA Ultrasonography of Superior Vena Cava, Guidance (ICD-10-PCS; 2020-02-18)
DX: N39.0 Urinary tract infection, site not specified (principal); D68.69 Other thrombophilia; I48.20 Chronic atrial fibrillation, unspecified; Z94.0 Kidney transplant status; B96.20 Unspecified Escherichia coli [E. coli] as the cause of diseases classified elsewhere; D63.8 Anemia in other chronic diseases classified elsewhere; E78.5 Hyperlipidemia, unspecified; D64.9 Anemia, unspecified; R33.9 Retention of urine, unspecified; Z79.01 Long term (current) use of anticoagulants; Z79.899 Other long term (current) drug therapy; Z80.52 Family history of malignant neoplasm of bladder; Z87.891 Personal history of nicotine dependence
CPT/HCPCS: 36415; 36573; 76770; 80048; 80053; 80069; 80197; 81001; 82040; 82306; 82728; 83540; 83550; 83735; 83970; 84153; 84550; 85025; 86361; 87077; 87086; 87186; 99285; G0378; J0696; J0744; J1335; J7507; J7518; C1751

== ENCOUNTER 2021-06-14 12:26 | Emergency (ER) | payer MEDICARE, OTHER ==
[~2021-06-14] VITALS: Ht 185.4 cm; Wt 80.0 kg
[~2021-06-14 12:26] MED LIST changes: +ASPI-1026 PO; -ASPI-650 PO; +NAPHAZOLINE EACHEYE; -PANT40TA5 PO; +PANT40TA6 PO; +PHENIRAMINE EACHEYE; -TACR1CAP4 PO; +TACR1CAP5 PO; +TAMS-11 PO
[2021-06-14 13:01] LABS: BASOPHILS % (AUTO) 0 % (0-1); EOSINOPHILS % (AUTO) 0 % (1-7); LYMPHOCYTES % (AUTO) 12 % (22-44); MEAN CORPUSCULAR HEMOGLOBIN 30.9 pg (27.5-34.5); MEAN CORPUSCULAR HGB CONC 32.8 g/dL (33.2-36.2); MEAN PLATELET VOLUME 9.5 fL (7.4-10.4); MONOCYTES % (AUTO) 5 % (2-9); NEUTROPHILS % (AUTO) 82 % (42-75); PLATELET COUNT 158 x10^3/uL (130-400); RED BLOOD COUNT 4.22 x10^6/uL (4.38-5.82); RED CELL DISTRIBUTION WIDTH 14.5 % (9.4-14.8)
[2021-06-14 13:11] LABS: ALBUMIN 3.3 g/dL (3.4-5.0); ANION GAP 6 mmol/L (5-15); CALCIUM 8.8 mg/dL (8.5-10.1); CHLORIDE 109 mmol/L (98-107); CREATININE 1.62 mg/dL (0.7-1.3)
--- NOTE | 2021-06-14 13:46 | NUR ---
pulp mixer note: Pt to room from lobby.
[2021-06-14 15:08] VITALS: BP 119/63
[2021-06-14] MEDS ORDERED: HYDROcodone/APAP 5/325 TABLET ONE (15:24)
[2021-06-14] MEDS ORDERED: HYDROcodone/APAP 5/325 TABLET PO ONE (15:30)
== END 2021-06-14 16:04 | disposition home or self-care (01) ==
LOC: ED 15:16
DX: S22.31XA Fracture of one rib, right side, initial encounter for closed fracture (principal); R07.89 Other chest pain; I48.91 Unspecified atrial fibrillation; W18.30XA Fall on same level, unspecified, initial encounter; Y93.89 Activity, other specified; Y92.009 Unspecified place in unspecified non-institutional (private) residence as the place of occurrence of the external cause; Y99.8 Other external cause status
CPT/HCPCS: 36415; 71250; 80048; 82040; 85025; 93005; 99285